=== PATIENT | male | born 1970 | race Caucasian/White ===

== ENCOUNTER 2021-07-06 15:17 | Emergency (ER) | payer BC ==
[~2021-07-06 15:17] MED LIST: AMBIEN10 MG PO; CEPHADYN; CYMBALTA60 MG PO; DOCUSATE SODIU250 MG PO; FENOFIBRATE134 MG PO; KLONOPIN TAB 00.5 MG PO; LISINOPRIL-HCT1 EACH PO; LOPRESSOR50 MG PO; METHOCARBAMOL750 MG PO; NEURONTIN 300300 MG PO; PERCOCET 5-3251 EACH PO; PHENERGAN 12.12.5 M1 PO; PRILOSEC OTC20 MG PO; ZYLOPRIM 100 M100 MG PO
[2021-07-06 16:59] LABS: HEMOGLOBIN 17.4 gm/dl (14.0-17.5); RED BLOOD COUNT 5.49 M/UL (4.20-5.50); WHITE BLOOD COUNT 14.5 K/UL (4.5-11.0)
[2021-07-06 17:40] LABS: BUN/CREATININE RATIO 24 (0-10)
[2021-07-06] MEDS ORDERED: ANUSOL-HC25 MG PR (20:15)
== END 2021-07-06 20:25 | disposition home or self-care (01) ==
LOC: ER1 15:17
PROVIDERS: Family Medicine
DX: K62.5 Hemorrhage of anus and rectum (principal); I10 Essential (primary) hypertension
CPT/HCPCS: 80053; 81001; 82550; 82553; 83690; 84484; 85025; 85610; 86850; 86900; 86901; 96374; 96375; 99284; C9113; J1885; J2405; J7030; Q9967